=== PATIENT | female | born 1990 | race Caucasian/White ===

== ENCOUNTER 2016-10-06 17:35 | Emergency (ER) | payer MEDICAID ==
[~2016-10-06] VITALS: Wt 90.0 kg
[2016-10-06] MEDS ORDERED: IBUPROFEN 800 MG TAB PO ONE (18:30)
--- NOTE | 2016-10-06 18:50 | RADRPT ---
PROCEDURE: XR Chest. CLINICAL INDICATION: Chest pain TECHNIQUE: Chest AP portable. COMPARISON: No comparison available. FINDINGS: The mediastinal structures are unremarkable. The heart is normal in size and configuration. The pu lmonary vascularity is normal. The lung self are unremarkable. No consolidation is identified. The pleural spaces are unremarkable. The axial skeleton is unremarkable. IMPRESSION: No active intrathoracic disease. RPTAT: HGDB .Pool Hackett MD, MD Date Time Electronically viewed and signed by .Pool Hackett MD, on 10/06/2016 18:49 .B/
[2016-10-06] MEDS ORDERED: IBUP-1542 PO (18:57)
--- NOTE | 2016-10-06 19:00 | ERD ---
ER Documentation Chief Complaint Date/Time DATE: 10/06/16 TIME: 18:59 Chief Complaint CP LAST NIGHT AND INTERMITTENT TO TODAY. TACHYPNEIC AND CARPAL SPASMS HPI Patient is a 18-year-old female with no medical problems who presents with chest pain. She started with chest pain last night as well as shortness of breath. She was breathing rapidly today and then started having cramping of her hands and feet bilaterally. She has had no treatment as of yet. She was feeling very anxious. The patient does not currently have a primary doctor. ROS All systems reviewed and are negative except as per history of present illness. Medications Home Meds Active Scripts Ibuprofen* (Motrin*) 600 Mg Tab, 600 MG PO Q6H Y for PAIN AND OR ELEVATED TEMP, #30 TAB Prov:MARION MARTÍNEZ MD 10/06/16 Allergies Allergies: Coded Allergies: No Known Allergy (Unverified , 10/06/16) PMhx/Soc Medical and Surgical Hx: pt denies Medical Hx, pt denies Surgical Hx Hx Alcohol Use: No Hx Substance Use: No Hx Tobacco Use: No Smoking Status: Never smoker FmHx Family History: No diabetes Physical Exam Vitals Vital Signs Date Time Temp Pulse Resp B/P Pulse Ox O2 Delivery O2 Flow Rate FiO2 10/06/16 17:41 98.5 79 18 12/70 98 Physical Exam Const: No acute distress Head: Atraumatic Eyes: Normal Conjunctiva ENT: Normal External Ears, Nose and Mouth. Neck: Full range of motion..~ No meningismus. Resp: Clear to auscultation bilaterally Cardio: Regular rate and rhythm, no murmurs Abd: Soft, non tender, non distended. Normal bowel sounds Skin: No petechiae or rashes Back: No midline or flank tenderness Ext: No cyanosis, or edema Neur: Awake and alert Psych: Normal Mood and Affect Results 24 hrs Laboratory Tests Test 10/06/16 18:22 Bedside Glucose 105mg/dL Current Medications Medications (Trade) Dose Ordered Sig/Milton Route PRN Reason Start Time Stop Time Status Last Admin Dose Admin Ibuprofen (Motrin) 800 mg ONCE ONCE PO 10/06/16 18:30 10/06/16 18:31 DC 10/06/16 18:32 Procedures/MDM EKG read by me: Rate/Rhythm: Regular rate and rhythm at a rate of 75 Intervals: Normal Impression: No evidence of ischemia or arrhythmia Chest x-ray negative per radiology. Accu-Chek is normal. test is negative. Patient is a 26-year-old female who presents with chest pain and spasms. I believe she was having carpopedal spasm secondary to hyperventilation. Her EKG is normal and her chest x-ray is negative. Her test is negative and her Accu-Chek is normal. I doubt acute coronary syndrome, pneumonia, pneumothorax, pulmonary embolism, or aortic dissection. I believe outpatient management is appropriate. The patient was given ibuprofen. She will need to follow-up with a primary doctor and since she does not have one I will provide her with a list of the local clinics. She was provided with a copy of her x- ray report prior to discharge. She can return sooner for any worsening symptoms. Departure Diagnosis: Primary Impression: Spasm Additional Impressions: Panic attack Chest pain Chest pain type: unspecified Qualified Code: R07.9 - Chest pain, unspecified type Condition: Fair Patient Instructions: Chest Pain, Uncertain Cause [facility]errals[facility] Usted se lopez hecho un examen mdico de control que le indica que no est en anibal condicin que requiera tratamiento urgente en el Departamento de Emergencia. Un estudio ms profundo y el tratamiento de andrew condicin pueden esperar sin ningn riesgo hasta que usted sea atendida/o en el consultorio de andrew mdico o anibal cl hi. Es responsabilidad suya arreglar anibal gracie para el seguimiento del glen. MANEJO DE CONDICIONES NO URGENTES EN EL FUTURO 1) Si usted tiene un mdico de atencin primaria: Usted debera llamar a andrew mdico de atencin primaria antes de venir al departamento de emergencia. Despus de las horas de consultorio, andrew doctor o andrew asociado/a est disponible por telfono. El mdico o enfermero de jacob en el servicio telefnico puede asesorarle por mary lou medio para atender el problema, o glen contrario se puede programar anibal gracie. 2) Si usted no tiene un mdico de atencin primaria: Llame al mdico o clnica de referencia que aparece abajo flavio las horas de consultorio para hacer anibal gracie para que le vean. CLINICAS: [place] [id number] [phone] [facility] [phone] [facility] [phone] [place] [address] [phone] [place] [address] [phone] [facility] [phone] [address] Additional Instructions: Llame al doctor MAANA y [place] anibal GRACIE PARA DENTRO DE 1-2 BIALON.Dgale a la secretaria que nosotros le instruimos hacer esta gracie.Avise o llame si andrew condicin se empeora antes de la gracie. Regresa aqui si peor o no mejor. MARION MARTÍNEZ MD Oct 06, 2016 19:00
[2016-10-06 19:18] VITALS: BP 106/67
== END 2016-10-06 19:19 | disposition home or self-care (01) ==
LOC: E/R 17:35
DX: R25.2 Cramp and spasm (principal); R07.9 Chest pain, unspecified; F41.0 Panic disorder [episodic paroxysmal anxiety]; R40.2142 Coma scale, eyes open, spontaneous, at arrival to emergency department; R40.2362 Coma scale, best motor response, obeys commands, at arrival to emergency department; R40.2252 Coma scale, best verbal response, oriented, at arrival to emergency department
CPT/HCPCS: 71010; 82962; 93005; Z7610

== ENCOUNTER 2018-02-09 23:22 | Emergency (ER) | END 2018-02-10 04:37 | disposition home or self-care (01) ==

== ENCOUNTER 2018-10-01 23:10 | Emergency (ER) | payer MEDICAID ==
[~2018-10-01] VITALS: Ht 165.1 cm; Wt 89.1 kg
[~2018-10-01 23:10] MED LIST: IBUP-1542 PO; NITR-58 PO; PHEN-538 PO
[2018-10-01 23:14] VITALS: Ht 165.1 cm; Wt 89.1 kg
[2018-10-02] MEDS ORDERED: LIDOCAINE/MYLANTA 40 ML BTL PO ONE (02:30)
[2018-10-02 02:38] VITALS: BP 127/83; PULSE 83; RESP 17
--- NOTE | 2018-10-18 23:24 | ERD ---
ER Documentation Chief Complaint Chief Complaint feels like a chicken bone stuck on throat - diff swallowing/drinking HPI This is a 28-year-old female with chicken and feels like she was doing well starting at home. She says she has some mild difficulty swallowing and feels some pain. No fevers no chills. No airway issues. No breathing issues. ROS All systems reviewed and are negative except as per history of present illness. Allergies Allergies: Coded Allergies: No Known Allergy (Unverified , 10/02/18) PMhx/Soc Medical and Surgical Hx: pt denies Medical Hx, pt denies Surgical Hx Hx Alcohol Use: No Hx Substance Use: No Hx Tobacco Use: No Smoking Status: Never smoker Physical Exam Physical Exam Const: No acute distress Head: Atraumatic Eyes: Normal Conjunctiva ENT: Normal External Ears, Nose and Mouth. Neck: Full range of motion. No meningismus. Resp: Clear to auscultation bilaterally Cardio: Regular rate and rhythm, no murmurs Abd: Soft, non tender, non distended. Normal bowel sounds Skin: No petechiae or rashes Back: No midline or flank tenderness Ext: No cyanosis, or edema Neur: Awake and alert Psych: Normal Mood and Affect Results 24 hrs Laboratory Tests Test 10/02/18 01:07 POC Beta HCG, Qualitative NEGATIVE Current Medications Medications Dose Sig/Milton Start Time Status Last (Trade) Ordered Route PRN Stop Time Admin Dose Reason Admin 40 ml ONCE ONCE 10/02/18 DC 10/02/18 Miscellaneous PO 02:30 02:34 Medication 10/02/18 (Gi Cocktail 02:31 (2)) Procedures/MDM Medical decision makin-year female foreign body sensation. No evidence of foreign body. Airway patent. Tolerating p.o. Stable for outpatient management. Departure Diagnosis: Primary Impression: Esophageal foreign body Encounter type: initial encounter Qualified Codes: T18.108A - Unspecified foreign body in esophagus causing other injury, initial encounter Condition: Stable Patient Instructions: Esophageal Foreign Body, Resolved MAGO VALENTINO Oct 18, 2018 23:24
== END 2018-10-02 02:40 | disposition home or self-care (01) ==
LOC: E/R 23:10
DX: T18.108A Unspecified foreign body in esophagus causing other injury, initial encounter (principal); X58.XXXA Exposure to other specified factors, initial encounter; Y92.9 Unspecified place or not applicable
CPT/HCPCS: 70490; 81025; Z7610

== ENCOUNTER 2019-04-07 06:06 | Emergency (ER) | payer MEDICAID ==
[~2019-04-07] VITALS: Ht 170.2 cm; Wt 90.1 kg
[2019-04-07 06:16] VITALS: Ht 170.2 cm; Wt 90.1 kg
[2019-04-07] MEDS ORDERED: KETOROLAC 30 MG INJ IV STA (06:34)
[2019-04-07] MEDS ORDERED: morphine 2 MG INJ IV STA (06:34)
[2019-04-07] MEDS ORDERED: SOD CHLORIDE 0.9% 1,000 ML IV STA (06:34)
--- NOTE | 2019-04-07 06:54 | ERD ---
ER Documentation Chief Complaint Chief Complaint fever, WALKER and cough x 3 days HPI 28-year-old female presents complaint of fever, headache, cough, and right lower quadrant tenderness for the past 3 days. States that the headache came on gradually and started mildly 1 month ago and is only been exacerbated 3 days ago. Denies any nausea, vomiting, diarrhea, dysuria, hematuria, hemoptysis, chest pain, photophobia, worse headache of life, weakness, numbness, vision problems, wheezing. ROS All systems reviewed and are negative except as per history of present illness. Medications Home Meds Active Scripts Hydrocodone/Acetaminophen ([place] 5-325 Tablet) 1 Each Tablet, 1 TAB PO Q6H PRN for PAIN, #15 TAB Prov:MAGO GREENBERG 04/07/19 Ibuprofen* (Motrin*) 600 Mg Tab, 600 MG PO Q6, #30 TAB Prov:MAGO GREENBERG 04/07/19 Azithromycin* (Zithromax*) 250 Mg Tablet, 250 MG PO .ZPACK DIRECTED, #6 TAB TAKE 500 MG (2 TABS) THE FIRST DAY THEN 250 MG (1 TAB) DAYS 2-5 Prov:MAGO GREENBERG 04/07/19 Allergies Allergies: Coded Allergies: No Known Allergy (Unverified , 10/02/18) PMhx/Soc Hx Alcohol Use: No Hx Substance Use: No Hx Tobacco Use: No FmHx Family History: No diabetes, No coronary disease, No other Physical Exam Vitals Vital Signs Date Temp Pulse Resp B/P (MAP) Pulse Ox O2 O2 Flow FiO2 Time Delivery Rate 04/07/19 98.7 102 18 123/89 98 Room Air 08:55 (100) 04/07/19 100.7 119 24 127/95 96 06:16 (106) Physical Exam Const: No acute distress Head: Atraumatic Eyes: Normal Conjunctiva ENT: Normal External Ears, Nose and Mouth. Neck: Full range of motion. No meningismus. Resp: Clear to auscultation bilaterally Cardio: Regular rate and rhythm, no murmurs Abd: Positive McBurney's tenderness with guarding and rigidity. Skin: No petechiae or rashes Back: No midline or flank tenderness Ext: No cyanosis, or edema Neur: Awake and alert Psych: Normal Mood and Affect Neuro: M/S: Alert and oriented Face: EOMI, face and pharynx with normal sensation and function Motor: Normal strength throughout Sensation: Normal sensation throughout Speech: Normal Cerebel: Normal coordination Normal gait Normal finger to nose DTR: 2+ and symmetric upper/lower extremities Result Diagram: 04/07/19 0656 04/07/19 0656 Results 24 hrs Laboratory Tests Test 04/07/19 06:55 04/07/19 06:56 04/07/19 07:15 Lipase 109 U/L White Blood Count 10.4 10^3/ul Red Blood Count 5.45 10^6/ul Hemoglobin 12.3 g/dl Hematocrit 39.4 % Mean Corpuscular Volume 72.3 fl Mean Corpuscular Hemoglobin 22.6 pg Mean Corpuscular Hemoglobin Concent 31.2 g/dl Red Cell Distribution Width 16.4 % Platelet Count 252 10^3/UL Mean Platelet Volume 10.9 fl Immature Granulocytes % 0.300 % Neutrophils % 60.6 % Lymphocytes % 24.9 % Monocytes % 10.0 % Eosinophils % 3.9 % Basophils % 0.3 % Nucleated Red Blood Cells % 0.0 /100WBC Immature Granulocytes # 0.030 10^3/ul Neutrophils # 6.3 10^3/ul Lymphocytes # 2.6 10^3/ul Monocytes # 1.0 10^3/ul Eosinophils # 0.4 10^3/ul Basophils # 0.0 10^3/ul Nucleated Red Blood Cells # 0.0 10^3/ul Urine Color YELLOW Urine Clarity CLEAR Urine pH 6.0 Urine Specific [place] 1.020 Urine Ketones NEGATIVE mg/dL Urine Nitrite NEGATIVE mg/dL Urine Bilirubin NEGATIVE mg/dL Urine Urobilinogen NEGATIVE mg/dL Urine Leukocyte Esterase NEGATIVE Grzegorz/ul Urine Microscopic RBC > 182 /HPF Urine Microscopic WBC 1 /HPF Urine Squamous Epithelial Cells FEW /HPF Urine Bacteria FEW /HPF Urine Hemoglobin 3+ mg/dL Urine Glucose NEGATIVE mg/dL Urine Total Protein 2+ mg/dl Sodium Level 141 mmol/L Potassium Level 4.3 mmol/L Chloride Level 108 mmol/L Carbon Dioxide Level 21 mmol/L Anion Gap 12 Blood Urea Nitrogen 9 mg/dl Creatinine 0.47 mg/dl Est Glomerular Filtrat Rate mL/min > 60 mL/min Glucose Level 103 mg/dl Calcium Level 8.6 mg/dl Total Bilirubin 0.3 mg/dl Direct Bilirubin 0.00 mg/dl Indirect Bilirubin 0.3 mg/dl Aspartate Amino Transf (AST/SGOT) 481 IU/L Alanine Aminotransferase (ALT/SGPT) 293 IU/L Alkaline Phosphatase 82 IU/L Total Protein 8.3 g/dl Albumin 4.0 g/dl Globulin 4.30 g/dl Albumin/Globulin Ratio 0.93 POC Beta HCG, Qualitative NEGATIVE POC Venous Lactate 2.3 mmol/L Current Medications Medications Dose Sig/Milton Start Time Status Last (Trade) Ordered Route PRN Stop Time Admin Dose Reason Admin Sodium 1,000 ml @ Q1H STAT 04/07/19 DC 04/07/19 Chloride 1,000 mls/hr IV 06:34 04/07/19 07:04 07:33 Morphine 2 mg ONCE STAT 04/07/19 DC 04/07/19 Sulfate IV 06:34 04/07/19 07:03 (morphine) 06:43 Ketorolac 30 mg ONCE STAT 04/07/19 DC 04/07/19 Tromethamine IV 06:34 04/07/19 07:03 (Toradol) 06:43 IV Flush 10 ml STK-MED 04/07/19 DC (NS 10 ml) ONCE .ROUTE 07:34 04/07/19 07:35 Sodium 100 ml @ ud STK-MED 04/07/19 DC Chloride ONCE .ROUTE 07:34 04/07/19 07:35 Iohexol 150 ml STK-MED 04/07/19 DC (Omnipaque ONCE .ROUTE 07:34 04/07/19 300mg/ ml) 07:35 Ceftriaxone 50 ml @ ONCE ONCE 04/07/19 DC 04/07/19 Sodium 100 mls/hr IVPB 09:00 04/07/19 08:49 09:29 Procedures/MDM DIAGNOSTIC IMAGING REPORT Patient: NEO PENA : 1990 Age: 28 Sex: F MR #: [id number] DOS: 04/07/19 0644 Ordering MD: MAGO GREENBERG Location: [facility] Room/Bed: PROCEDURE: CT Abdomen and Pelvis with contrast. CLINICAL INDICATION: Right lower quadrant pain TECHNIQUE: CT scan of the abdomen and pelvis with contrast was performed on a multi-detector high-resolution CT scanner. The patient was scanned following the uncomplicated intravenous administration of 100 cc of Omnipaque 300 IV contrast. Coronal and sagittal reformatted images were obtained from the axial source images. DICOM images are available. CTDI equals 15.78 mGy, and DLP equals 926.27 mGy-cm. One or more of the following dose reduction techniques were used: - Automated exposure control. - Adjustment of the mA and/or kV according to patient size. - Use of iterative reconstruction technique. COMPARISON: None. FINDINGS: Lower thorax: Atelectasis versus small patchy infiltrate at the periphery of the of the lingula and right middle lobe. Liver: Liver is enlarged. Right liver lobe measures 21.5 cm in craniocaudal dimension. Likely diffuse hepatic steatosis. Patent portal vein. Biliary: Normal gallbladder. No biliary dilatation. Pancreas: Normal. Spleen: Normal. Adrenal Glands: Normal. Genitourinary: Symmetric perfusion of kidneys with no hydronephrosis. Bladder is decompressed and unremarkable. Gastrointestinal: Stomach is decompressed. Small and large bowel with normal caliber. Normal appendix. Lymph nodes: No adenopathy. Vascular: Normal-caliber of the abdominal aorta. Peritoneum/mesentery: No free fluid or free air. Reproductive organs: Normal. Musculoskeletal: Normal. Abdominal wall: Small fat containing umbilical hernia. IMPRESSION: 1. Hepatomegaly with mild diffuse hepatic steatosis. 2. Normal appendix. 3. No hydronephrosis or nephrolithiasis. 4. Atelectasis versus small patchy infiltrates at the periphery of the lingula and right middle lobe. RPTAT: QQ Physician Sylvia Date Time Electronically viewed and signed by Physician Sylvia on 04/07/2019 08:11 rV/ CC: MAGO GREENBERG [id number] MDM: Patient's chief complaint is right lower quadrant pain along with fever and there was some tenderness on exam so decision was made to do CT abdomen pelvis. Results were negative for appendicitis but positive for pneumonia . CXR was positive for pna as well. To note, the patient's lactate was elevated however patient had no white count and patient was nontoxic-appearing and had normal blood pressure. I presented the case to my supervising physician Dr. Tavera, whso saw the patient as well, and he stated the patient would be fit for discharge given all the labs and imaging findings with treatment for pneumonia. Patient was given 1 g of ceftriaxone in the ER and discharged on azithromycin. Patient was advised that appendicitis was still a possibility given her complaint of right lower quadrant pain so she return to ER immediately if there is continued right lower quadrant pain, fevers, vomiting. Patient understood and agreed. At this time I have low suspicion for appendicitis, cholecystitis, meningitis, sepsis, or any other emergent condition. At this time, patient is stable for discharge and outpatient management. I have instructed the patient to follow-up with his/her primary care physician in 1-2 days. I have discussed with the patient the possibility of needing to see a specialist for further workup and imaging studies if symptoms persist. I have instructed the patient to promptly return to the ER for any new or worsening symptoms including but not limited to increased pain, fever, nausea, vomiting, weakness or LOC. The patient and/or family expressed understanding of and agreement with this plan. All questions were answered. Home care instructions were provided. Communication with patient both during the exam and instructions for discharge were performed with using a pipeline dispatcher . Patient gave verbal confirmation to the practitioner, through the pipeline dispatcher, that they understood everythign that was being said to them. DISCLAIMER: Inadvertent spelling and grammatical errors are likely due to EHR/dictation software use and do not reflect on the overall quality of patient care. Also, please note that the electronic time recorded on this note does not necessarily reflect the actual time of the patient encounter. ER attending note: Patient seen independently and in conjunction with the PA. History, physical examination and work-up were all appreciated and reviewed. On exam, patient appears essentially nontoxic with nonspecific discomfort about the right flank/lower quadrant. Clinical examination is otherwise essentially benign Work-up demonstrated evidence of what appears to be a pneumonia, but without evidence of hypoxemia or elevated work of breathing. Serial examinations of her abdomen remained benign. Plan: Patient will be discharged on antibiotics after an injection here in the emergency department with appendicitis precautions provided. Departure Diagnosis: Primary Impression: Pneumonia Pneumonia type: due to unspecified organism Laterality: unspecified laterality Lung location: unspecified part of lung Qualified Codes: J18.9 - Pneumonia, unspecified organism Condition: Stable MAGO GREENBERG Apr 07, 2019 06:54 VA TAVERA Apr 07, 2019 08:51
[2019-04-07] MEDS ORDERED: IOHEXOL 300MG/ML 150 ML BTL ONE (07:34)
[2019-04-07] MEDS ORDERED: SOD CHLORIDE 0.9% 100 ML ONE (07:34)
[2019-04-07] MEDS ORDERED: AZIT250T PO (08:46)
[2019-04-07] MEDS ORDERED: HYDR-4011 PO (08:48)
[2019-04-07] MEDS ORDERED: IBUP-1542 PO (08:48)
[2019-04-07 08:55] VITALS: BP 123/89; PULSE 102; RESP 18
[2019-04-07] MEDS ORDERED: CEFTRIAXONE 1 GM/50 ML (PMX) 50 ML IVPB ONE (09:00)
== END 2019-04-07 09:32 | disposition home or self-care (01) ==
LOC: FTE 06:06
DX: J18.9 Pneumonia, unspecified organism (principal)
CPT/HCPCS: 36415; 71045; 74177; 80053; 81001; 81025; 83605; 83690; 85025; 87400; 96361; 96365; 96375; J0696; J1885; J2270; J7030; Q9967; Z7502; Z7610